=== PATIENT | male | born 1960 | race Caucasian/White ===

== ENCOUNTER → 2018-07-08 08:28 | Outpatient (CLI) | payer OTHER, SELFPAY ==
--- NOTE | 2018-07-08 | DI.MRI.S_ITS ---
PROCEDURE: MR HEAD/BRAIN WO/W CON INDICATIONS: Other headache syndrome. Blurred vision. TECHNIQUE: Noncontrast axial T1 spin echo, axial T2 fast spin echo, sagittal and axial FLAIR, coronal T2 fast spin echo, axial gradient echo, axial diffusion and ADC through the brain. After the administration of contrast, axial and coronal 3D VIBE or T1 spin echo with fat saturation through the brain. COMPARISON: [facility], , CAROTID DOPPLER , 07/08/2018, 8:46. FINDINGS: Image quality: Excellent. CSF Spaces: Basal cisterns are patent. No extra-axial fluid collections. Ventricles are normal in size and shape. Brain: No midline shift. No intracranial bleeds or masses. No abnormal intracranial enhancement. The brainstem appears normal. Diffusion-weighted images demonstrate no acute ischemic insults. A likely remote lacunar infarction is seen involving the left basal ganglia, as on series 5 image 10 and on series 4 image 10. Differential diagnosis a very large perivascular space, yet this is considered to be less likely.. Normal intravascular flow voids are present. Skull and face: Calvarial marrow is normal in signal. Orbits appear normal. Sinuses: Sinuses and mastoids appear clear. IMPRESSION: A cause of headaches not observed. No masses or abnormal enhancement can be seen. No findings of acute or subacute infarction can be seen. Dictated by: Franck Lincoln M.D. on 07/08/2018 at 11:35 Approved by: Franck Lincoln M.D. on 07/08/2018 at 11:37
--- NOTE | 2018-07-08 | DI.US.S_ITS ---
PROCEDURE: US CAROTID DOPPLER BI INDICATIONS: BLURRED VISION TECHNIQUE: Color and pulse Doppler interrogation was performed of both carotid systems, with image documentation and velocity measurements. COMPARISON: None. FINDINGS: Stenosis calculations are based on SRU (Society of Radiologists in Ultrasound) criteria. Right side: Brachial blood pressure: 121/81 mm Hg. Common carotid artery peak systolic velocity: 111 cm/sec. Internal carotid artery peak systolic velocity: 80 cm/sec. Internal carotid artery end diastolic velocity: 17 cm/sec. External carotid artery peak systolic velocity: 107 cm/sec. ICA/CCA peak systolic ratio: 0.7. Mccrary scale imaging description: Normal appearance. Percent internal carotid artery stenosis: No stenosis. Vertebral artery: Flow direction is antegrade. Left side: Brachial blood pressure: 126/78 mm Hg. Common carotid artery peak systolic velocity: 121 cm/sec. Internal carotid artery peak systolic velocity: 92 cm/sec. Internal carotid artery end diastolic velocity: 21 cm/sec. External carotid artery peak systolic velocity: 108 cm/sec. ICA/CCA peak systolic ratio: 0.6 . Mccrary scale imaging description: Normal. Percent internal carotid artery stenosis: No carotid stenosis.. Vertebral artery: Flow direction is antegrade. IMPRESSION: No carotid stenosis. Dictated by: Gal Owen [facility] Interpreted: Leighann Blanchard MD on 07/08/2018 at 9:50 Approved by: Leighann Blanchard MD, PhD on 07/08/2018 at 13:21
== END ==
PROVIDERS: Visit Provider Physician Assistant Medical
DX: G44.89 Other headache syndrome (principal); H53.8 Other visual disturbances
CPT/HCPCS: 70553; 93880; A9579

== ENCOUNTER → 2021-03-07 08:33 | Outpatient (CLI) | payer OTHER, SELFPAY ==
[2021-03-07 08:48] LABS: Add Manual Diff / Slide Review NO; Basophils Absolute Auto 100 /uL (0-100); Basophils Percent Auto 0.9 % (0-2); Eosinophils Absolute Auto 400 /uL (0-450); Eosinophils Percent Auto 4.9 % (2-4); Hematocrit 40.7 % (41-53); Hemoglobin 14.4 g/dL (13.5-17.5); Lymphocytes Absolute Auto 1900 /uL (1100-4500); Lymphocytes Percent Auto 25.5 % (25-40); Mean Corpuscular HGB Conc 35.3 % (30-36); Mean Corpuscular Hemoglobin 31.3 PG (26-34); Mean Corpuscular Volume 88.5 fL (80-100); Monocytes Absolute Auto 500 /uL (0-900); Neutrophils Absolute Auto 4700 /uL (1500-7000); Neutrophils Percent Auto 61.7 % (50-75); Platelet Count 171 X10^3/uL (150-400); Red Cell Distribution Width 14.1 % (11.6-14.8); White Blood Cell Count 7.6 X10^3/uL (4.5-11.0)
[2021-03-07 10:25] LABS: Creatinine Urine Random 149.5 mg/dL
[2021-03-07 10:26] LABS: Microalbumin Urine Random 1.2 mg/dL (0-1.6)
[2021-03-07 17:50] LABS: Hemoglobin A1C% w Est Avg Glu 6.6 % (4.0-6.0)
[2021-03-07 17:51] LABS: Alanine Aminotransferase 12 IU/L (<50); Albumin Globulin Ratio 1.7 (1.0-2.8); Alkaline Phosphatase 68 U/L (38-126); Aspartate Aminotransferase 26 IU/L (17-59); BUN Creatinine Ratio 14.3 (6-22); Bilirubin Total 0.4 mg/dL (0.2-1.3); Blood Urea Nitrogen 14 mg/dL (9-20); Calcium 8.9 mg/dL (8.4-10.2); Carbon Dioxide 23 mmol/L (22-32); Chloride 109 mmol/L (98-107); Cholesterol 119 mg/dL (140-199); Estimated Glomerular Filt Rate > 60.0 mL/min (>60); Globulin 2.4 g/dL (1.7-4.1); Glucose 191 mg/dL (70-100); HDL Cholesterol 28 mg/dL (40-60); HEMOLYSIS < 15 (0-50); LDL Cholesterol Calculated 56 mg/dL (<100); Potassium 4.2 mmol/L (3.4-5.1); Sodium 139 mmol/L (137-145); Total Protein 6.4 g/dL (6.3-8.2); Triglycerides 175 mg/dL (35-150)
== END ==
PROVIDERS: PCP Family Medicine; Referring Provider Family Medicine; Visit Provider Family Medicine
DX: E11.9 Type 2 diabetes mellitus without complications (principal); E78.5 Hyperlipidemia, unspecified; I10 Essential (primary) hypertension; I25.111 Atherosclerotic heart disease of native coronary artery with angina pectoris with documented spasm
CPT/HCPCS: 36415; 80053; 80061; 82043; 82570; 83036; 85025

== ENCOUNTER 2021-07-29 13:51 | Emergency (ER) | payer OTHER, SELFPAY ==
[2021-07-29 13:52] VITALS: BP 134/74; PULSE 85; RESP 14; TEMP 36.7; O2SAT 98; BMI 27.6
[2021-07-29 14:01] VITALS: PULSE 78; O2SAT 98
--- NOTE | 2021-07-29 14:21 | ED.GENADULT ---
HPI - General Adult General Chief complaint: Upper Respiratory Symptoms Stated complaint: COVID+, Heart Issues Time Seen by Provider: 07/29/21 14:08 Source: patient Mode of arrival: Ambulatory Limitations: no limitations History of Present Illness HPI narrative: Patient sent here by his primary care provider to inquire about receiving monoclonal antibody infusion. Patient states he did have Pfizer COVID vaccination and completed the 2nd dose back in December of this year. He states the past 4 days he has had cough cold congestion. No dyspnea. No fever chills. No nausea vomiting diarrhea. No loss of taste or smell. He does have a significant heart history/coronary disease. We do provide literature about monoclonal antibody infusion center is. We do not do them here. He understands this. He did take 2 home COVID tests that were positive. He understands we need a positive test here. He has been given information about this investigational monoclonal antibody therapy. Consent signed. He understands risks of , allergic reaction/anaphylaxis/primary injury to his immune system but not limited to these side effects. Patient states possible sick contact on airplane he just flew back from [place] Related Data Home Medications Medication Instructions Recorded Confirmed ibuprofen 200 mg tablet 800 mg PO BID #0 11/18/17 07/05/21 ticagrelor 90 mg tablet 90 mg PO BID 03/30/21 07/05/21 cyanocobalamin (vitamin B-12) PO 07/05/21 07/05/21 metoprolol succinate 25 mg 25 mg PO DAILY tab 07/05/21 07/05/21 tablet,extended release 24 hr Previous Rx's Medication Instructions Recorded allopurinol 300 mg tablet 300 mg PO QDAY #90 tab 03/06/21 aspirin 81 mg tablet,delayed 81 mg PO DAILY #90 tab 03/06/21 release (Adult Low Dose Aspirin) lisinopril 10 mg tablet 10 mg PO DAILY #90 tab 03/06/21 metformin 1,000 mg tablet 1,000 mg PO BIDCC #180 tab 03/06/21 rosuvastatin 40 mg tablet 40 mg PO QDAY #90 tab 03/30/21 flash glucose scanning reader #1 ea 05/03/21 (FreeStyle Gabriella 14 Day [place]) flash glucose sensor (FreeStyle See Rx Instructions .ROUTE 05/17/21 Gabriella 14 Day Sensor) .COMPLEX #2 ea semaglutide (Ozempic) 0.5 mg SUBCUT QWEEK #1.5 ml 07/05/21 Allergies Allergy/AdvReac Type Severity Reaction Status Date / Time ciprofloxacin [From CIPRO] AdvReac Intermediate hallucinati Verified 07/29/21 14:13 ons Review of Systems Review of Systems Narrative: GENERAL: Denies chills, fatigue, malaise, fever, sweats. HEENT: Denies sinus pain, ear pain, positive nasal congestion and sore throat RESPIRATORY: Denies dyspnea, positive cough CARDIOVASCULAR: Denies chest pain, palpitations GASTROINTESTINAL: Denies nausea, vomiting, abdominal pain : Denies dysuria, frequency, hematuria MUSCULOSKELETAL: denies muscle or bony pain SKIN: Denies rash, skin lesions NEUROLOGIC: Denies weakness, numbness ROS Unobtainable: All systems reviewed & are unremarkable except as noted in HPI and below Patient History Medical History CAD (coronary artery disease) Essential hypertension Establishing care with new doctor, encounter for GERD (gastroesophageal reflux disease) Gout History of [place] (myocardial infarction) Hyperlipidemia Obstructive sleep apnea Type 2 diabetes mellitus Surgical History History of fundoplication History of hernia repair History of spinal surgery History of transurethral resection of prostate Family History Mother Congestive heart failure Diabetes mellitus Hyperlipidemia Hypertension Heart disease Father Heart disease Social History Smoking Status: Never smoker Smoking Status: Never smoker Exam Narrative Exam Narrative: GENERAL: in no distress, not toxic not dyspneic HEAD: Normocephalic. EYES: Pupils equal round No scleral icterus. NECK: Trachea midline. CARDIOVASCULAR: Regular rate and rhythm without murmurs RESPIRATORY: Clear to auscultation. Breath sounds equal bilaterally. No wheezes, rales, or rhonchi. Speaks full sentences GASTROINTESTINAL: Abdomen soft, non-tender NEURO: AOx4. SKIN: Warm and dry PSYCH: Not anxious, is cooperative Initial Vital Signs Initial Vital Signs: Vital Signs Temperature 98.1 F 07/29/21 13:52 Pulse Rate 85 07/29/21 13:52 Respiratory Rate 14 07/29/21 13:52 Blood Pressure 134/74 07/29/21 13:52 Pulse Oximetry 98 07/29/21 13:52 Course Course Course Narrative: No new issues during course of stay. Orders Ordered: ED Orders 07/29/21 14:10 COVID19 -Nasal swab/Pre-Proc Stat Reevaluation(s) Reevaluation #1: Patient has been provided any did read literature about this investigational monoclonal antibody therapy. He has signed consent. He understands the risks and benefits of this infusion. Time: 15:25 Vital Signs Vital signs: Vital Signs - 8 hr 07/29/21 13:52 Temperature 98.1 F Pulse Rate 85 Respiratory Rate 14 Blood Pressure 134/74 Pulse Oximetry 98 Medical Decision Making Differential Diagnosis Differential Diagnosis: COVID infection/monoclonal antibody therapy inquiry Lab Data Labs: Lab Results 07/29/21 Range/Units 14:10 SARS-CoV-2 (PCR) Positive H (Negative) MDM Narrative Medical decision making narrative: Appropriate for discharge home. Labs and imaging not required for monoclonal antibody infusion. Exam reassuring at this time. Discharge Plan Departure Patient Disposition: Home Clinical Impression: COVID-19 Instructions: DI for COVID-19 (Suspected or Confirmed ) Activity Restrictions/Additional Instructions: You most quarantine 14 days from time of onset of the symptoms. See family doctor in a week for recheck. Keep well hydrated. Return if worse having trouble breathing. Forms for monoclonal antibody therapy has been sent to infusion Center. Infusion Center should be calling you for your assigned time for medication. Prescriptions: No Action ibuprofen 200 MG tablet 800 mg PO BID Qty: 0 RF: 0 (DME) FreeStyle Gabriella 14 Day [place] Misc See Rx Instructions .Route Qty: 1 RF: 5 FreeStyle Gabriella 14 Day Sensor Kit See Rx Instructions .ROUTE .COMPLEX Qty: 2 RF: 6 ticagrelor 90 mg tablet 90 mg PO BID RF: 0 rosuvastatin 40 mg tablet 40 mg PO QDAY Qty: 90 RF: 3 lisinopril 10 mg tablet 10 mg PO DAILY Qty: 90 RF: 3 metformin 1,000 mg tablet 1,000 mg PO BIDCC Qty: 180 RF: 3 aspirin [Adult Low Dose Aspirin] 81 mg tablet,delayed release (DR/EC) 81 mg PO DAILY Qty: 90 RF: 3 allopurinol 300 mg tablet 300 mg PO QDAY Qty: 90 RF: 3 metoprolol succinate 25 mg tablet extended release 24 hr 25 mg PO DAILY RF: 0 cyanocobalamin (vitamin B-12) PO RF: 0 Ozempic 0.25 mg or 0.5 mg(2 mg/1.5 mL) pen injector 0.5 mg SUBCUT QWEEK Qty: 1.5 RF: 3 Referrals: Oli Perez MD [Primary Care Provider] -
[2021-07-29 14:30] VITALS: BP 119/72; PULSE 77; O2SAT 96
[2021-07-29 15:00] VITALS: BP 121/67; PULSE 73; O2SAT 94
[2021-07-29 15:03] LABS: COVID19 -Nasal RAPID POSITIVE (Negative)
[2021-07-29 15:30] VITALS: BP 110/69; PULSE 71; O2SAT 97
--- NOTE | 2021-07-29 16:00 | PC.NURSE ---
Paperwork for [facility] infusion solutions monoclonal antibodies faxed.
== END 2021-07-29 16:01 | disposition home or self-care (01) ==
PROVIDERS: Emergency Provider Emergency Medicine; PCP Family Medicine
DX: U07.1 COVID-19 (principal); R05.9 Cough, unspecified
CPT/HCPCS: 87635; 99282; C9803

== ENCOUNTER → 2021-11-02 09:45 | Outpatient (CLI) | payer OTHER, SELFPAY ==
[2021-11-02 10:25] LABS: Hemoglobin A1C% w Est Avg Glu 6.7 % (4.0-6.0)
[2021-11-02 10:47] LABS: Add Manual Diff / Slide Review NO; Basophils Absolute Auto 100 /uL (0-100); Basophils Percent Auto 0.9 % (0-2); Eosinophils Absolute Auto 300 /uL (0-450); Eosinophils Percent Auto 3.1 % (2-4); Hematocrit 42.4 % (41-53); Lymphocytes Absolute Auto 2100 /uL (1100-4500); Lymphocytes Percent Auto 20.1 % (25-40); Mean Corpuscular HGB Conc 35.4 % (30-36); Mean Corpuscular Hemoglobin 31.3 PG (26-34); Mean Corpuscular Volume 88.3 fL (80-100); Monocytes Absolute Auto 800 /uL (0-900); Monocytes Percent Auto 7.7 % (3-14); Neutrophils Absolute Auto 7000 /uL (1500-7000); Neutrophils Percent Auto 68.2 % (50-75); Platelet Count 210 X10^3/uL (150-400); Red Cell Distribution Width 13.8 % (11.6-14.8); White Blood Cell Count 10.2 X10^3/uL (4.5-11.0)
[2021-11-02 10:54] LABS: Alanine Aminotransferase 13 IU/L (<50); Albumin 4.8 g/dL (3.5-5.0); Alkaline Phosphatase 79 U/L (38-126); Aspartate Aminotransferase 28 IU/L (17-59); BUN Creatinine Ratio 17.3 (6-22); Bilirubin Total 0.8 mg/dL (0.2-1.3); Blood Urea Nitrogen 18 mg/dL (9-20); Calcium 9.7 mg/dL (8.4-10.2); Carbon Dioxide 24 mmol/L (22-32); Chloride 104 mmol/L (98-107); Cholesterol 117 mg/dL (140-199); Estimated Glomerular Filt Rate > 60.0 mL/min (>60); Globulin 2.4 g/dL (1.7-4.1); Glucose 172 mg/dL (70-100); HDL Cholesterol 28 mg/dL (40-60); HEMOLYSIS 17 (0-50); LDL Cholesterol Calculated 53 mg/dL (<100); Potassium 4.7 mmol/L (3.4-5.1); Sodium 138 mmol/L (137-145); Total Protein 7.2 g/dL (6.3-8.2); Triglycerides 179 mg/dL (35-150)
[2021-11-02 11:24] LABS: TSH w/ Reflex to FT4 1.95 uIU/mL (0.47-4.68)
== END ==
PROVIDERS: PCP Family Medicine; Referring Provider Family Medicine; Visit Provider Family Medicine
DX: E11.9 Type 2 diabetes mellitus without complications (principal); I10 Essential (primary) hypertension; I25.10 Atherosclerotic heart disease of native coronary artery without angina pectoris; I25.111 Atherosclerotic heart disease of native coronary artery with angina pectoris with documented spasm
CPT/HCPCS: 36415; 80053; 80061; 83036; 84443; 85025

== ENCOUNTER → 2022-02-14 08:03 | Outpatient (CLI) | payer OTHER, SELFPAY ==
[2022-02-14 09:19] LABS: Hemoglobin A1C% w Est Avg Glu 5.9 % (4.0-6.0)
== END ==
PROVIDERS: PCP Family Medicine; Referring Provider Family Medicine; Visit Provider Family Medicine
DX: E11.9 Type 2 diabetes mellitus without complications (principal); I25.111 Atherosclerotic heart disease of native coronary artery with angina pectoris with documented spasm
CPT/HCPCS: 36415; 83036

== ENCOUNTER → 2022-11-01 09:02 | Outpatient (CLI) | payer OTHER, SELFPAY ==
[2022-11-01 09:53] LABS: Add Manual Diff / Slide Review NO; Basophils Absolute Auto 100 /uL (0-100); Basophils Percent Auto 0.6 % (0-2); Eosinophils Absolute Auto 300 /uL (0-450); Eosinophils Percent Auto 2.7 % (2-4); Hematocrit 43.1 % (41-53); Hemoglobin 14.8 g/dL (13.5-17.5); Lymphocytes Absolute Auto 1900 /uL (1100-4500); Lymphocytes Percent Auto 17.9 % (25-40); Mean Corpuscular HGB Conc 34.4 % (30-36); Mean Corpuscular Hemoglobin 31.4 PG (26-34); Mean Corpuscular Volume 91.1 fL (80-100); Monocytes Absolute Auto 800 /uL (0-900); Monocytes Percent Auto 7.3 % (3-14); Neutrophils Absolute Auto 7700 /uL (1500-7000); Neutrophils Percent Auto 71.5 % (50-75); Platelet Count 169 X10^3/uL (150-400); Red Blood Cell Count 4.73 X10^6/uL (4.5-5.9); Red Cell Distribution Width 14.2 % (11.6-14.8); White Blood Cell Count 10.8 X10^3/uL (4.5-11.0)
[2022-11-01 09:58] LABS: Hemoglobin A1C% w Est Avg Glu 5.5 % (4.0-6.0)
[2022-11-01 10:20] LABS: Cholesterol 102 mg/dL (140-199); HDL Cholesterol 29 mg/dL (40-60); LDL Cholesterol Calculated 44 mg/dL (<100); Triglycerides 144 mg/dL (35-150)
== END ==
PROVIDERS: PCP Family Medicine; Referring Provider Family Medicine; Visit Provider Family Medicine
DX: E11.9 Type 2 diabetes mellitus without complications (principal); E78.5 Hyperlipidemia, unspecified; I10 Essential (primary) hypertension; I25.10 Atherosclerotic heart disease of native coronary artery without angina pectoris; E78.2 Mixed hyperlipidemia; I25.111 Atherosclerotic heart disease of native coronary artery with angina pectoris with documented spasm
CPT/HCPCS: 36415; 80061; 83036; 84443; 85025

== ENCOUNTER → 2023-09-17 08:28 | Outpatient (CLI) | payer OTHER, SELFPAY ==
[2023-09-17 09:11] LABS: Add Manual Diff / Slide Review NO; Basophils Absolute Auto 100 /uL (0-100); Eosinophils Absolute Auto 200 /uL (0-450); Eosinophils Percent Auto 2.1 % (2-4); Hematocrit 43.3 % (41-53); Hemoglobin 15.5 g/dL (13.5-17.5); Lymphocytes Absolute Auto 1900 /uL (1100-4500); Mean Corpuscular HGB Conc 35.9 % (30-36); Mean Corpuscular Hemoglobin 32.3 PG (26-34); Mean Corpuscular Volume 90.1 fL (80-100); Monocytes Absolute Auto 800 /uL (0-900); Monocytes Percent Auto 7.9 % (3-14); Neutrophils Absolute Auto 6900 /uL (1500-7000); Platelet Count 204 X10^3/uL (150-400); Red Cell Distribution Width 13.5 % (11.6-14.8); White Blood Cell Count 9.8 X10^3/uL (4.5-11.0)
[2023-09-17 09:24] LABS: Hemoglobin A1C% w Est Avg Glu 5.6 % (4.0-6.0)
[2023-09-17 10:10] LABS: Alanine Aminotransferase 17 IU/L (<50); Albumin 4.3 g/dL (3.5-5.0); Albumin Globulin Ratio 1.8 (1.0-2.8); Alkaline Phosphatase 71 U/L (38-126); Aspartate Aminotransferase 26 IU/L (17-59); BUN Creatinine Ratio 14.3 (6-22); Bilirubin Total 0.7 mg/dL (0.2-1.3); Blood Urea Nitrogen 13 mg/dL (9-20); Calcium 9.7 mg/dL (8.4-10.2); Carbon Dioxide 22 mmol/L (22-32); Chloride 108 mmol/L (98-107); Cholesterol 113 mg/dL (140-199); Estimated Glomerular Filt Rate > 60 mL/min (>60); Globulin 2.4 g/dL (1.7-4.1); Glucose 125 mg/dL (80-110); HDL Cholesterol 31 mg/dL (40-60); HEMOLYSIS < 15 (0-50); LDL Cholesterol Calculated 62 mg/dL (<100); Potassium 4.6 mmol/L (3.4-5.1); Sodium 140 mmol/L (137-145); Total Protein 6.7 g/dL (6.3-8.2); Triglycerides 98 mg/dL (35-150)
[2023-09-17 10:32] LABS: Prostate Specific Antigen Scrn 1.11 ng/mL (0.1-4.0)
[2023-09-17 10:38] LABS: Creatinine Urine Random 75.1 mg/dL
[2023-09-17 10:44] LABS: Microalbumi Creatinin Ratio Ur 33.2 ug/mg CR (<30); Microalbumin Urine Random 2.5 mg/dL (0-1.6)
[2023-09-18 04:37] LABS: Apolipoprotein B 75 mg/dL (<90)
[2023-09-20 03:36] LABS: Lipoprotein (a) 280.2 nmol/L (<75.0)
== END ==
PROVIDERS: PCP Family Medicine; Referring Provider Family Medicine; Visit Provider Family Medicine
DX: Z12.5 Encounter for screening for malignant neoplasm of prostate (principal); I25.111 Atherosclerotic heart disease of native coronary artery with angina pectoris with documented spasm; K21.9 Gastro-esophageal reflux disease without esophagitis; E78.2 Mixed hyperlipidemia; E11.9 Type 2 diabetes mellitus without complications; I10 Essential (primary) hypertension
CPT/HCPCS: 36415; 80053; 80061; 82043; 82172; 82570; 83036; 83695; 85025; G0103

== ENCOUNTER → 2024-05-28 07:58 | Outpatient (CLI) | payer OTHER, SELFPAY ==
--- NOTE | 2024-05-28 | DI.MRI.S_ITS ---
PROCEDURE: MR CERVICAL SPINE WO CON INDICATIONS: cervical stenosis of spine TECHNIQUE: Noncontrast sagittal T1 spin echo and T2 fast spin echo, sagittal STIR, foraminal oblique sagittal T2 fast spin echo, and axial gradient echo or T2 fast spin echo through the cervical spine. COMPARISON: None. FINDINGS: Image quality: Excellent. Alignment and Curvature: There is normal bony alignment. ACDF of C5-C6. Grade 1 retrolisthesis of C4 on C5. Bone Marrow: Marrow demonstrates normal overall signal. Spinal Cord: Visualized spinal cord has normal size and signal. No cerebellar tonsillar herniation. Paraspinous Soft Tissues: No paravertebral masses. Prevertebral soft tissues are normal in thickness. Intervertebral discs: Multilevel disc desiccation and height loss. C2-C3: No spinal canal stenosis or foraminal stenosis. Bilateral facet arthropathy and uncovertebral joint arthropathy. C3-C4: Dorsal disc osteophyte complex mildly effaces the ventral thecal sac. Mild narrowing of the right foramen. The left foramen patent. Bilateral facet arthropathy and uncovertebral joint arthropathy. C4-C5: Dorsal disc osteophyte complex mildly flattens the ventral thecal sac. Moderate bilateral foraminal stenosis, left greater than right. Bilateral facet arthropathy and uncovertebral joint arthropathy. C5-C6: No spinal canal stenosis . Moderate stenosis of the right foramen. The left foramen is patent. Bilateral facet arthropathy and uncovertebral joint arthropathy. C6-C7: No spinal canal stenosis. Moderate stenosis of the right foramen. Mild narrowing the foramen. Bilateral facet arthropathy and uncovertebral joint. C7-T1: No spinal canal stenosis or foraminal stenosis. IMPRESSION: 1. No significant spinal canal stenosis. There is moderate bilateral foraminal stenosis at C4-C5. 2. Grade 1 retrolisthesis of C4 on C5. Dictated by: Ayad Munoz M.D. on 05/28/2024 at 14:57 Approved by: Ayad Munoz M.D. on 05/28/2024 at 15:12
== END ==
LOC: MRI 07:58
PROVIDERS: PCP Family Medicine; Referring Provider Orthopaedic Surgery Orthopaedic Surgery of the Spine; Visit Provider Orthopaedic Surgery Orthopaedic Surgery of the Spine
DX: M48.02 Spinal stenosis, cervical region (principal); M43.12 Spondylolisthesis, cervical region; M47.812 Spondylosis without myelopathy or radiculopathy, cervical region; Z98.1 Arthrodesis status
CPT/HCPCS: 72141

== ENCOUNTER → 2024-06-02 09:52 | Outpatient (CLI) | payer OTHER, SELFPAY ==
[2024-06-02 10:44] LABS: Alanine Aminotransferase 18 IU/L (<50); Albumin 4.4 g/dL (3.5-5.0); Albumin Globulin Ratio 1.8 (1.0-2.8); Alkaline Phosphatase 63 U/L (38-126); Aspartate Aminotransferase 25 IU/L (17-59); Bilirubin Total 0.8 mg/dL (0.2-1.3); Blood Urea Nitrogen 12 mg/dL (9-20); Calcium 9.2 mg/dL (8.4-10.2); Carbon Dioxide 22 mmol/L (22-32); Chloride 108 mmol/L (98-107); Estimated Glomerular Filt Rate > 60 mL/min (>60); Globulin 2.5 g/dL (1.7-4.1); Glucose 121 mg/dL (80-110); HEMOLYSIS < 15 (0-50); Potassium 4.9 mmol/L (3.4-5.1); Sodium 138 mmol/L (137-145); Total Protein 6.9 g/dL (6.3-8.2)
[2024-06-02 12:55] LABS: Hemoglobin A1C% w Est Avg Glu 5.6 % (4.0-6.0)
== END ==
LOC: LAB 09:52
PROVIDERS: PCP Family Medicine; Referring Provider Family Medicine; Visit Provider Family Medicine
DX: E11.9 Type 2 diabetes mellitus without complications (principal); I10 Essential (primary) hypertension; E78.5 Hyperlipidemia, unspecified; I25.10 Atherosclerotic heart disease of native coronary artery without angina pectoris
CPT/HCPCS: 36415; 80053; 83036

== ENCOUNTER → 2024-11-16 07:32 | Outpatient (CLI) | payer OTHER, SELFPAY ==
[2024-11-16 08:22] LABS: Creatinine Urine Random 66.48 mg/dL
[2024-11-16 08:25] LABS: Add Manual Diff / Slide Review NO; Basophils Absolute Auto 100 /uL (0-100); Basophils Percent Auto 0.4 % (0-2); Eosinophils Absolute Auto 400 /uL (0-450); Hematocrit 46.5 % (41-53); Hemoglobin 15.9 g/dL (13.5-17.5); Hemoglobin A1C% w Est Avg Glu 5.7 % (4.0-6.0); Lymphocytes Absolute Auto 2200 /uL (1100-4500); Lymphocytes Percent Auto 11.4 % (25-40); Mean Corpuscular HGB Conc 34.3 % (30-36); Mean Corpuscular Hemoglobin 31.3 PG (26-34); Mean Corpuscular Volume 91.3 fL (80-100); Monocytes Absolute Auto 1200 /uL (0-900); Monocytes Percent Auto 6.3 % (3-14); Neutrophils Absolute Auto 15100 /uL (1500-7000); Neutrophils Percent Auto 79.9 % (50-75); Platelet Count 171 X10^3/uL (150-400); Red Blood Cell Count 5.09 X10^6/uL (4.5-5.9); Red Cell Distribution Width 13.8 % (11.6-14.8)
[2024-11-16 08:26] LABS: Microalbumin Urine Random 1.2 mg/dL (0-1.6)
[2024-11-16 08:36] LABS: Alanine Aminotransferase 21 IU/L (<50); Albumin 4.4 g/dL (3.5-5.0); Albumin Globulin Ratio 1.9 (1.0-2.8); Alkaline Phosphatase 70 U/L (38-126); Aspartate Aminotransferase 29 IU/L (17-59); BUN Creatinine Ratio 11.8 (6-22); Bilirubin Total 0.6 mg/dL (0.2-1.3); Blood Urea Nitrogen 13 mg/dL (9-20); Calcium 9.4 mg/dL (8.4-10.2); Carbon Dioxide 21 mmol/L (22-32); Chloride 106 mmol/L (98-107); Cholesterol 130 mg/dL (140-199); Estimated Glomerular Filt Rate > 60 mL/min (>60); Globulin 2.3 g/dL (1.7-4.1); Glucose 144 mg/dL (80-110); HDL Cholesterol 33 mg/dL (40-60); HEMOLYSIS < 15 (0-50); LDL Cholesterol Calculated 56 mg/dL (<100); Potassium 4.1 mmol/L (3.4-5.1); Sodium 137 mmol/L (137-145); Total Protein 6.7 g/dL (6.3-8.2); Triglycerides 206 mg/dL (35-150)
[2024-11-16 09:05] LABS: TSH w/ Reflex to FT4 1.58 uIU/mL (0.47-4.68)
[2024-11-16 09:06] LABS: Prostate Specific Antigen Scrn 0.936 ng/mL (0.1-4.0)
[2024-11-16 16:34] LABS: Hep C Virus Ab w/Reflex Quant NEGATIVE s/c (NEGATIVE)
== END ==
PROVIDERS: PCP Family Medicine; Referring Provider Family Medicine; Visit Provider Family Medicine
DX: E11.9 Type 2 diabetes mellitus without complications (principal); I10 Essential (primary) hypertension; E78.5 Hyperlipidemia, unspecified; M43.12 Spondylolisthesis, cervical region; Z98.890 Other specified postprocedural states; Z12.5 Encounter for screening for malignant neoplasm of prostate; I25.10 Atherosclerotic heart disease of native coronary artery without angina pectoris
CPT/HCPCS: 36415; 80053; 80061; 82043; 82570; 83036; 84443; 85025; 86803; G0103

== ENCOUNTER → 2024-11-20 11:25 | Outpatient (CLI) | payer OTHER, SELFPAY ==
[2024-11-20 12:27] LABS: Add Manual Diff / Slide Review NO; Basophils Absolute Auto 100 /uL (0-100); Basophils Percent Auto 0.6 % (0-2); Eosinophils Absolute Auto 300 /uL (0-450); Eosinophils Percent Auto 3.3 % (2-4); Hematocrit 45.9 % (41-53); Hemoglobin 16.1 g/dL (13.5-17.5); Lymphocytes Absolute Auto 2100 /uL (1100-4500); Lymphocytes Percent Auto 21.9 % (25-40); Mean Corpuscular HGB Conc 35.1 % (30-36); Mean Corpuscular Hemoglobin 31.7 PG (26-34); Mean Corpuscular Volume 90.4 fL (80-100); Monocytes Absolute Auto 800 /uL (0-900); Monocytes Percent Auto 7.9 % (3-14); Neutrophils Absolute Auto 6400 /uL (1500-7000); Neutrophils Percent Auto 66.3 % (50-75); Platelet Count 207 X10^3/uL (150-400); Red Blood Cell Count 5.08 X10^6/uL (4.5-5.9); Red Cell Distribution Width 13.7 % (11.6-14.8); White Blood Cell Count 9.6 X10^3/uL (4.5-11.0)
== END ==
PROVIDERS: PCP Family Medicine; Referring Provider Family Medicine; Visit Provider Family Medicine
DX: D72.829 Elevated white blood cell count, unspecified (principal)
CPT/HCPCS: 36415; 85025

== ENCOUNTER → 2025-01-08 07:02 | Outpatient (CLI) | payer OTHER, SELFPAY ==
--- NOTE | 2025-01-08 07:03 | DI.MRI.S_ITS ---
PROCEDURE: MR KNEE LT WO CON INDICATIONS: R/O MCL TEAR TECHNIQUE: Noncontrast sagittal PD fast spin echo and T2 fast spin echo with fat saturation, sagittal 3-D FLASH with fat saturation; coronal T1 spin echo and PD fast spin echo with fat saturation, and axial PD fast spin echo with fat saturation through the knee. COMPARISON: None. FINDINGS: Image quality: Excellent. Moderate knee joint effusion. Whether this fluid is infected or not cannot be determined by MR but by joint aspiration and laboratory evaluation of the aspirated fluid. Abnormal bone edema in the medial tibial plateau predominantly anteriorly as well as in the medial femoral condyle laterally. Vertically oriented radial tear in the medial meniscus posterior horn extending to the mid body (sees coronal series 13, image 23; axial series 8, image 25). Abnormal increased T2 weighted signal in the anterior horn of the medial meniscus with irregularity medially (axial series 8, image 26) suspicious for maceration/ degenerative changes. Moderate degenerative changes with joint space narrowing and osteophytes in the medial, greater than patellofemoral and lateral compartment. diffuse cartilaginous thinning of the patellar cartilage predominantly of the medial patellar facet. Increased T2 weighted signal with some thickening of the popliteus muscle and proximal tendon suspicious for muscle injury/strain. Mild increased T2 weighted signal surrounding the medial collateral ligament as well as within the proximal aspect of the medial collateral ligament suspicious for grade 2 injury. Evidence of posterior meniscocapsular separation in the medial greater than lateral compartment. Cruciate ligaments: The anterior and posterior cruciate ligaments appear intact. Medial structures: Mild increased T2 weighted signal/strain of the distal semimembranosus tendon. Lateral structures: The lateral collateral ligament, long and short heads of the biceps femoris tendon appear intact. Iliotibial band appears normal. Anterior structures: The quadriceps and patellar tendons appear intact. Patellar alignment is normal. No femoral trochlear dysplasia or ventral trochlear prominence. Bones and cartilage: No bone marrow contusions or fractures. The cartilage of the medial and lateral femorotibial compartments, as well as the patellofemoral compartment, appears normal in thickness. IMPRESSION: Moderate knee joint effusion as discussed above. Abnormal bone edema in the medial femoral condyle and medial tibial plateau suspicious for bone contusion . Radial tear of the medial meniscus posterior horn and degenerative changes of the anterior horn. Posterior meniscocapsular separation. Degenerative changes with diffuse cartilaginous thinning and osteophytes medial greater than patellofemoral and lateral compartments. Suspected grade 2 injury medial collateral ligament. Other findings as above. Dictated by: Ge Main M.D. on 01/08/2025 at 15:38 Approved by: Ge Main M.D. on 01/08/2025 at 15:55
== END ==
PROVIDERS: PCP Family Medicine; Referring Provider Orthopaedic Surgery; Visit Provider Orthopaedic Surgery
DX: S83.412A Sprain of medial collateral ligament of left knee, initial encounter (principal); S83.241A Other tear of medial meniscus, current injury, right knee, initial encounter; M25.462 Effusion, left knee; X58.XXXA Exposure to other specified factors, initial encounter
CPT/HCPCS: 73721

== ENCOUNTER → 2025-02-03 07:49 | Outpatient (CLI) | payer OTHER, SELFPAY ==
--- NOTE | 2025-02-03 07:50 | DI.ECHO.S_ITS ---
[facility] : : [address] : : [place] : : [id number] : : Phone: [phone] Echocardiogram Report + + :Name: HUMBLE ROBERTSON Study Date: 02/03/2025 Height: 74 in : :[facility] ReadingLocation: Weight: 198 lb: : Gender: Male BSA: 2.2 m2 : :: 1960 Age: 64 yrs BP: 99/69 mmHg: :Reason For Study: CHRONIC SYSTOLIC HEART FAILURE : :Ordering Physician: MAEVE SYED Performed By: Valdemar Chairez : :Referring: MAEVE SYED : + + Interpretation Summary 1. The left ventricular contractility is moderately compromised. Estimate ejection fraction is approximately 35 to 40% with global hypokinesis. No LVH. Grade 1 diastolic dysfunction. 2. The right ventricular contractility is normal. 3. All cardiac chambers are of normal size. 4. No significant valvular abnormalities. 5. No obvious intracardiac shunts. 6. No obvious intracardiac masses nor thrombi. 7. No hemodynamically significant pericardial effusion. 8. Low right-sided filling pressures. Conclusion: Moderately compromised left ventricular systolic function with no significant valvular abnormalities. When compared with echocardiogram from [facility] on August 30, 2023, no significant changes have occurred. Procedure: A two-dimensional transthoracic echocardiogram with color flow and Doppler was performed. The study quality was technically good. The patient had an echocardiogram, but there is no comparison study available. The patient was in normal sinus rhythm during the exam. Left Ventricle: The left ventricle is normal in size. There is normal left ventricular wall thickness. There is no ventricular septal defect visualized. The ejection fraction is estimated to be 35-40%. There are regional wall motion abnormalities as specified. Diastolic parameters suggest a relaxation abnormality of the left ventricle, consistent with probable normal filling pressures. Right Ventricle: The right ventricle is normal in size and function. Atria: The left atrial size is normal. Right atrial size is normal. There is no Doppler evidence for an interatrial shunt. Mitral Valve: There is mild mitral annular calcification. There is trace mitral regurgitation. Aortic Valve: The aortic valve is trileaflet. The aortic valve opens well. The aortic valve is mildly calcified. There is trace aortic regurgitation. Tricuspid Valve: The tricuspid valve leaflets are thin and pliable. There is trace tricuspid regurgitation. Pulmonic Valve: The pulmonic valve is not well seen, but is grossly normal. There is trace pulmonic regurgitation. Great Vessels: The aortic root is mildly dilated. The dimensions of the ascending aorta are normal. The pulmonary artery is normal size. The IVC is of normal diameter and collapses greater than 50% with a sniff. This suggests a low right atrial pressure of 3 mm Hg. Pericardium/ Pleura There is no pericardial effusion. There is no pleural effusion. MMode/2D Measurements & Calculations LVIDd: 5.1 cm LVOT diam: 2.1 cm LVIDs: 3.8 cm Ao root diam: 3.8 cm FS: 25.7 % asc Aorta Diam: 3.6 cm EPSS: 0.93 cm IVSd: 0.92 cm LVPWd: 0.91 cm LV cortez. diameter/BSA (cm/m^2): 2.3 LV sys. diameter/BSA (cm/m^2): 1.7 LA A2 area: 21.8 cm2 RA long axis: 4.6 cm LA A4 area: 21.9 cm2 RA area: 14.1 cm2 LA length (vol): 5.7 cm RA vol: 37.1 ml LA vol: 71.5 ml RA : 17.1 ml/m2 LA vol index: 33.0 ml/m2 IVC diam: 1.9 cm RVD1 (basal): 3.2 cm RVD2 (mid): 2.7 cm TAPSE: 2.4 cm Doppler Measurements & Calculations Ao V2 max: 107.2 cm/sec LVOT Max [place]: 96.9 cm/sec Ao V2 mean: 81.1 cm/sec LV V1 max P.8 mmHg Ao max P.6 mmHg LV V1 VTI: 22.3 cm Ao mean P.9 mmHg HENRY(I,D): 3.0 cm2 Ao V2 VTI: 26.6 cm HENRY(V,D): 3.2 cm2 sev ratio: 0.84 HENRY indexed to BSA (cm^2/m^2): 1.4 MV E max luca: 68.4 cm/sec PA V2 max: 85.0 cm/sec MV A max luca: 86.4 cm/sec PA V2 mean: 58.6 cm/sec MV E/A: 0.79 PA mean P.5 mmHg Med Peak E' Luca: 5.7 cm/sec PA pr(Accel): 36.2 mmHg E/E' med: 12.1 Lat Peak E' Luca: 6.2 cm/sec E/E' lat: 11.1 E/e' average: 11.6 MV dec time: 0.21 sec SV(LVOT): 79.5 ml Reading Physician:DARIO
== END ==
PROVIDERS: PCP Family Medicine; Referring Provider Internal Medicine; Visit Provider Internal Medicine
DX: I50.22 Chronic systolic (congestive) heart failure (principal); I34.81 Nonrheumatic mitral (valve) annulus calcification; I77.810 Thoracic aortic ectasia
CPT/HCPCS: 93306

== ENCOUNTER → 2025-02-15 14:11 | Outpatient (CLI) | payer OTHER, SELFPAY ==
[2025-02-15 15:42] LABS: Hemoglobin A1C% w Est Avg Glu 5.6 % (4.0-6.0)
[2025-02-15 15:56] LABS: Alanine Aminotransferase 17 IU/L (<50); Albumin 4.3 g/dL (3.5-5.0); Alkaline Phosphatase 67 U/L (38-126); Aspartate Aminotransferase 28 IU/L (17-59); Bilirubin Total 0.8 mg/dL (0.2-1.3); Blood Urea Nitrogen 12 mg/dL (9-20); Calcium 8.9 mg/dL (8.4-10.2); Carbon Dioxide 22 mmol/L (22-32); Chloride 106 mmol/L (98-107); Estimated Glomerular Filt Rate > 60 mL/min (>60); Globulin 2.1 g/dL (1.7-4.1); Glucose 126 mg/dL (70-99); HEMOLYSIS < 15 (0-50); Sodium 138 mmol/L (137-145); Total Protein 6.4 g/dL (6.3-8.2)
== END ==
PROVIDERS: PCP Family Medicine; Referring Provider Family Medicine; Visit Provider Family Medicine
DX: I10 Essential (primary) hypertension (principal); E11.9 Type 2 diabetes mellitus without complications; E78.5 Hyperlipidemia, unspecified; I25.10 Atherosclerotic heart disease of native coronary artery without angina pectoris
CPT/HCPCS: 36415; 80053; 83036

== ENCOUNTER → 2025-07-27 10:32 | Outpatient (CLI) | payer OTHER, SELFPAY ==
--- NOTE | 2025-07-27 11:20 | EKG_ITS ---
[id number], [place] [address] Test Date: 2025-07-27 Pat Name: Sukhwinder Low Department: Room: Gender: Male [employer] Analyst: : 1960 Requested By: Order Number: [id number] Reading MD: Christopher Proctor MD Measurements Intervals [place] Rate: 58 P: 20 IA: 158 QRS: 4 QRSD: 84 T: 1 QT: 400 QTc: 392 Interpretive Statements Sinus bradycardia Possible Inferior infarct , age undetermined Electronically Signed On 07-27-2025 12:00:48 PDT by Christopher Proctor MD
[2025-07-27 11:29] LABS: Add Manual Diff / Slide Review NO; Hematocrit 45.8 % (41-53); Hemoglobin 16.0 g/dL (13.5-17.5); Lymphocytes Absolute Auto 2400 /uL (1100-4500); Mean Corpuscular HGB Conc 34.8 % (30-36); Mean Corpuscular Hemoglobin 31.7 PG (26-34); Mean Corpuscular Volume 91.1 fL (80-100); Platelet Count 165 X10^3/uL (150-400)
[2025-07-27 11:38] LABS: Hemoglobin A1C% w Est Avg Glu 5.7 % (4.0-6.0)
[2025-07-27 12:42] LABS: Albumin 4.6 g/dL (3.5-5.0)
[2025-07-27 12:53] LABS: Prealbumin 29.0 mg/dL (17.6-36.0)
[2025-07-27 14:00] LABS: Vitamin D 25 Hydroxy (D3) 18.6 ng/mL (30.0-100.0)
== END ==
PROVIDERS: PCP Family Medicine; Referring Provider Orthopaedic Surgery Adult Reconstructive Orthopaedic Surgery; Visit Provider Orthopaedic Surgery Adult Reconstructive Orthopaedic Surgery
DX: M17.12 Unilateral primary osteoarthritis, left knee (principal); Z68.25 Body mass index [BMI] 25.0-25.9, adult
CPT/HCPCS: 36415; 82040; 82306; 83036; 84134; 85025; 93005; 93010; 99214